=== PATIENT | male | born 1945 | race Caucasian/White ===

== ENCOUNTER → 2018-09-20 | Outpatient (CLI) | payer MEDICARE, BC ==
--- NOTE | 2018-09-20 12:48 | Diagnostic Imaging Report ---
EXAM: US ABDOMEN COMPLETE INDICATION: History of colonic polyps, dysphasia, dyspepsia. COMPARISON: None TECHNIQUE: Transverse and longitudinal farr scale and color doppler sonographic images of the upper abdomen were obtained. FINDINGS: Exam is somewhat limited due to overlying bowel gas. LIVER 16.7 cm in the right midclavicular line. Left hepatic lobe is not wall visualized due to overlying bowel gas. Normal echogenicity of the right hepatic lobe with normal contour, no masses. SPLEEN 9.4 cm in maximum diameter. Normal echogenicity, no masses. GALLBLADDER Status post cholecystectomy. BILE DUCTS No intra nor extra-hepatic biliary dilation. Common bile duct measures 0.4 cm PANCREAS: Not well visualized due to overlying bowel gas. RIGHT KIDNEY: 11.8 cm Echogenicity: Normal Collecting System: No hydronephrosis Stones: None Cyst/Mass: None LEFT KIDNEY: 12.0 cm Echogenicity: Normal Collecting System: No hydronephrosis Stones: None Cyst/Mass: None VESSELS: Aorta: Not well visualized due to overlying bowel gas. Inferior Vena Cava: Not well visualized due to overlying bowel gas. Main Portal Vein: 1.0 cm, normal size with hepatopetal flow. FREE FLUID: None IMPRESSION: Exam is somewhat limited due to overlying bowel gas. Hepatomegaly. Status post cholecystectomy. Signed by: Dr. El Hastings MD on 09/20/2018 12:44 PM
== END ==
LOC: US 07:09
PROVIDERS: ATTEND Internal Medicine Gastroenterology
DX: R13.10 Dysphagia, unspecified (principal); K30 Functional dyspepsia; Z86.010 Personal history of colon polyps
CPT/HCPCS: 76700; 93976